=== PATIENT | female | born 1985 | race Caucasian/White ===

== ENCOUNTER 2017-03-09 10:41 | Emergency (ER) | payer BC ==
[~2017-03-09] VITALS: Ht 162.6 cm; Wt 62.5 kg
[2017-03-09] MEDS ORDERED: AUGMENTIN875 MG PO (12:09)
[2017-03-09] MEDS ORDERED: LORTAB 5-325 M1 EACH PO (12:28)
[2017-03-09 12:35] VITALS: BP 128/76
== END 2017-03-09 12:37 | disposition home or self-care (01) ==
LOC: EME 10:41
DX: K11.20 Sialoadenitis, unspecified (principal)
CPT/HCPCS: 99281; 99284